=== PATIENT | male | born 1955 | race Caucasian/White ===

== ENCOUNTER → 2024-03-22 06:35 | Outpatient (REF) | payer MEDICARE, OTHER, SELFPAY ==
[2024-03-22 09:33] LABS: % Basophils 0.6 % (0-2); % Eosinophils 1.8 % (0-6); % Immature Granulocytes 3.2 % (0-0.5); % Lymphocytes 27.6 % (20.5-51.1); % Monocytes 8.1 % (1.7-9.3); % Neutrophils 58.7 % (42.2-75.2); Absolute Basophils 0.1 10^3/uL (0-0.2); Absolute Eosinophils 0.2 10^3/uL (0-0.7); Absolute Immature Granulocytes 0.4 10^3/uL (0-0.05); Absolute Lymphocytes 3.4 10^3/uL (1.2-3.4); Absolute Neutrophils 7.2 10^3/uL (1.4-6.5); Hematocrit 53.5 % (39.0-52.0); Hemoglobin 18.3 g/dL (13.0-18.0); Mean Corp Hgb Conc. 34.2 g/dL (33.0-37.0); Mean Corpuscular Hgb 31.4 pg (27.0-31.0); Mean Corpuscular Volume 91.8 fL (80.0-94.0); Mean Platelet Volume 10.5 fL (7.4-10.4); Nucleated Red Blood Cells % 0 % (-); Platelet Count 241 10^3/uL (130-400); Red Blood Cell Count 5.83 10^6/uL (4.70-6.10); Red Cell Dist. Width 12.7 % (11.5-14.5); White Blood Cell Count 12.3 10^3/uL (4.8-10.8)
[2024-03-22 09:50] LABS: ALT (SGPT) 49 U/L (0-50); AST (SGOT) 33 U/L (17-59); Albumin 4.7 g/dl (3.5-5.0); Alkaline Phosphatase 44 U/L (38-126); Blood Urea Nitrogen 34 mg/dl (9-20); Calcium 10.4 mg/dl (8.4-10.2); Carbon Dioxide 29 mmol/L (22-30); Chloride 99 mmol/L (98-107); Glucose 102 mg/dl (70-99); HDL Cholesterol 64 mg/dl; LDL Cholesterol, Calculated 108 mg/dl; Potassium 4.7 mmol/L (3.5-5.1); Sodium 139 mmol/L (135-145); Total Bilirubin 0.6 mg/dl (0.2-1.3); Total Cholesterol 223 mg/dl (50-199); Total Protein 7.2 g/dl (6.3-8.2); Triglyceride 255 mg/dl (10-149); Very Low Density Lipoprotein 51 mg/dl (0-30); eGFR > 60.00
[2024-03-22 11:14] LABS: Glycohemoglobin (HgbA1c) 6.2 % (4.0-5.6)
== END ==
LOC: HWLAB 06:35
PROVIDERS: ATTENDING PHYSICIAN Podiatrist; FAMILY PHYSICIAN Internal Medicine
DX: M25.559 Pain in unspecified hip (principal); I10 Essential (primary) hypertension; E78.2 Mixed hyperlipidemia; R73.9 Hyperglycemia, unspecified; K76.0 Fatty (change of) liver, not elsewhere classified
CPT/HCPCS: 36415; 73523; 80053; 80061; 83036; 85025